=== PATIENT | female | born 1995 | race Caucasian/White ===

== ENCOUNTER 2020-07-02 05:04 | Emergency (ER) | payer MEDICAID, OTHER ==
[~2020-07-02] VITALS: Ht 152.4 cm; Wt 55.0 kg
[~2020-07-02 05:04] MED LIST: ALBU2SYR3 PO
[2020-07-02 05:17] VITALS: BP 114/61
[2020-07-02] MEDS ORDERED: SODIUM CHLORIDE 0.9% 1,000 ML IV ONE (05:58)
[2020-07-02] MEDS ORDERED: ONDANSETRON HCL 4MG/2ML INJ IV STA (05:58)
[2020-07-02] MEDS ORDERED: MORPHINE SULFATE 4 MG/ML CPJ (NOT FOR IM USE) IV STA (05:58)
[2020-07-02 06:40] LABS: HEMATOCRIT. 39.4 % (36.0-48.0); HEMOGLOBIN. 13.5 g/dL (12.0-16.0); MEAN CORPUSCULAR HEMOGLOBIN 32.1 pg (28.0-32.0); MEAN CORPUSCULAR VOLUME 93.8 fL (81.0-99.0); MEAN PLATELET VOLUME 10.8 fl (7.4-10.4); PLATELET 189 x1000/uL (130-400); RED BLOOD CELL COUNT 4.19 mill/uL (4.2-5.4); RED CELL DISTRIBUTION WIDTH 13.3 % (11.6-14.6)
[2020-07-02 06:44] LABS: CHLORIDE 107 mEq/L (98-107)
[2020-07-02 06:53] LABS: HCG SCREEN NEGATIVE
[2020-07-02 07:09] LABS: PLATELET ESTIMATE NORMAL
[2020-07-02] MEDS ORDERED: IOHEXOL-300 100 ML BOTTLE ONE (08:13)
[2020-07-02 08:56] LABS: CLARITY URINE CLOUDY (CLEAR); COLOR URINE YELLOW (YELLOW); KETONES URINE 4+ (NEGATIVE); LEUKOCYTE ESTERASE URINE NEGATIVE (NEGATIVE); NITRITE URINE POSITIVE (NEGATIVE); OCCULT BLOOD URINE TRACE (NEGATIVE); PH URINE 6.5 (4.5-8.0); PROTEIN URINE 1+ (NEGATIVE); SPECIFIC GRAVITY URINE 1.035 (1.005-1.030)
[2020-07-02] MEDS ORDERED: CEFTRIAXONE 1 G PREMIX 50 ML IV ONE (09:15)
[2020-07-02] MEDS ORDERED: METRONIDAZOLE 500 MG PREMIX 100 ML IV ONE (09:15)
== END 2020-07-02 10:41 | disposition left against medical advice (07) ==
LOC: ER 05:04 → EDBEDREQ 09:18 → ER 10:41 → CANBEDREQ 16:33
DX: K52.9 Noninfective gastroenteritis and colitis, unspecified (principal); R10.9 Unspecified abdominal pain; F17.200 Nicotine dependence, unspecified, uncomplicated
CPT/HCPCS: 36415; 74177; 80053; 81003; 83690; 84703; 85025; 96361; 96374; 96375; 99285; J2270; J2405; J7030; Q9967

== ENCOUNTER 2020-09-03 10:22 | Emergency (ER) | payer MEDICAID ==
[~2020-09-03] VITALS: Ht 160 cm; Wt 55.0 kg
[2020-09-03] MEDS ORDERED: FAMOTIDINE 20MG/2ML VIAL IV STA (10:54)
[2020-09-03] MEDS ORDERED: ONDANSETRON HCL 4MG/2ML INJ IV STA (10:54)
[2020-09-03] MEDS ORDERED: KETOROLAC 30MG/ML VIAL IV STA (10:54)
[2020-09-03] MEDS ORDERED: SODIUM CHLORIDE 0.9% 1,000 ML IV ONE (11:00)
[2020-09-03 11:48] LABS: HEMATOCRIT. 37.6 % (36.0-48.0); HEMOGLOBIN. 12.8 g/dL (12.0-16.0); MEAN CORPUSCULAR VOLUME 94.2 fL (81.0-99.0); MEAN PLATELET VOLUME 10.8 fl (7.4-10.4); PLATELET 158 x1000/uL (130-400); RED CELL DISTRIBUTION WIDTH 13.1 % (11.6-14.6)
[2020-09-03 11:50] LABS: CLARITY URINE CLOUDY (CLEAR); COLOR URINE YELLOW (YELLOW); KETONES URINE 4+ (NEGATIVE); LEUKOCYTE ESTERASE URINE TRACE (NEGATIVE); NITRITE URINE POSITIVE (NEGATIVE); OCCULT BLOOD URINE 2+ (NEGATIVE); PROTEIN URINE 1+ (NEGATIVE); SPECIFIC GRAVITY URINE 1.035 (1.005-1.030)
[2020-09-03 11:54] LABS: CHLORIDE 109 mEq/L (98-107)
[2020-09-03 11:55] LABS: HCG SCREEN NEGATIVE
[2020-09-03 11:56] LABS: INR 1.1; PROTHROMBIN TIME 11.2 sec (9.6-11.0)
[2020-09-03] MEDS ORDERED: CEFTRIAXONE 1 G PREMIX 50 ML IV ONE (12:00)
[2020-09-03] MEDS: LORAZEPAM 2MG/ML CPJ IV ONE ×2 (12:02→12:15)
[2020-09-03 12:20] LABS: *AMPHETAMINES SCREEN URINE NEGATIVE (NEGATIVE); *BARBITURATES SCREEN URINE NEGATIVE (NEGATIVE)
[2020-09-03 12:21] LABS: *BENZODIAZEPINES SCREEN URINE NEGATIVE (NEGATIVE); *COCAINE SCREEN URINE NEGATIVE (NEGATIVE); METHADONE URINE SCREEN NEGATIVE (NEGATIVE); OPIATES URINE SCREEN NEGATIVE (NEGATIVE); PHENCYCLIDINE URINE SCREEN NEGATIVE (NEGATIVE)
[2020-09-03 12:25] LABS: CANNABINOID URINE SCREEN PRESUMTIVE POSITIVE (NEGATIVE)
[2020-09-03 12:40] LABS: PLATELET ESTIMATE NORMAL
[2020-09-03] MEDS ORDERED: ONDANSETRON HCL 4MG/2ML INJ IV NR (13:00)
[2020-09-03 15:11] VITALS: BP 104/53
== END 2020-09-03 15:14 | disposition home or self-care (01) ==
LOC: ER 10:22
DX: K29.70 Gastritis, unspecified, without bleeding (principal); K58.9 Irritable bowel syndrome, unspecified; J45.909 Unspecified asthma, uncomplicated; F12.10 Cannabis abuse, uncomplicated
CPT/HCPCS: 36415; 80053; 80305; 81003; 81025; 83690; 84703; 85025; 85610; 93005; 96365; 96375; 99284; J0696; J2060; J2405; J3490; J7030

== ENCOUNTER 2020-10-15 06:15 | Emergency (ER) | payer MEDICAID ==
[~2020-10-15] VITALS: Ht 152.4 cm; Wt 48.0 kg
[2020-10-15 06:17] VITALS: BP 122/76
== END 2020-10-15 12:24 | disposition left against medical advice (07) ==
LOC: ER 06:15
DX: Z53.21 Procedure and treatment not carried out due to patient leaving prior to being seen by health care provider (principal)
CPT/HCPCS: 93005

== ENCOUNTER 2022-12-15 11:05 | Emergency (ER) | payer MEDICAID ==
[~2022-12-15] VITALS: Ht 152.4 cm; Wt 50.0 kg
[2022-12-15 11:27] VITALS: BP 111/78
[2022-12-15] MEDS ORDERED: ONDANSETRON 4MG ODT PO ONE (11:30)
[2022-12-15] MEDS: ACETAMINOPHEN 325MG TABLET PO PRN ×2 (11:40→14:37)
[2022-12-15 12:18] LABS: CLARITY URINE CLOUDY (CLEAR); COLOR URINE DARK YELLOW (YELLOW); KETONES URINE 4+ (NEGATIVE); LEUKOCYTE ESTERASE URINE TRACE (NEGATIVE); NITRITE URINE NEGATIVE (NEGATIVE); OCCULT BLOOD URINE NEGATIVE (NEGATIVE); PH URINE 7.5 (4.5-8.0); PROTEIN URINE 2+ (NEGATIVE)
[2022-12-15 12:43] LABS: HEMATOCRIT. 39.2 % (36.0-48.0); HEMOGLOBIN. 13.4 g/dL (12.0-16.0); MEAN CORPUSCULAR HEMOGLOBIN 32.3 pg (28.0-32.0); MEAN PLATELET VOLUME 9.7 fl (7.4-10.4); PLATELET 205 x1000/uL (130-400); RED BLOOD CELL COUNT 4.17 mill/uL (4.2-5.4)
[2022-12-15 12:46] LABS: CHLORIDE 108 mEq/L (98-107)
[2022-12-15 13:06] LABS: PLATELET ESTIMATE NORMAL
[2022-12-15 13:09] LABS: B-HCG QUANTITATIVE 51776 mIU/mL (<3)
[2022-12-15] MEDS ORDERED: TOPUD MT (13:57)
[2022-12-15] MEDS ORDERED: ONDA4TAB11 PO (13:57)
[2022-12-15] MEDS ORDERED: CEPH500C2 MT (13:57)
[2022-12-15] MEDS ORDERED: ONDANSETRON HCL 4MG/2ML INJ IM ONE (14:30)
== END 2022-12-15 14:58 | disposition home or self-care (01) ==
LOC: ER 12:35
DX: O23.41 Unspecified infection of urinary tract in pregnancy, first trimester (principal); N39.0 Urinary tract infection, site not specified; O26.891 Other specified pregnancy related conditions, first trimester; J45.909 Unspecified asthma, uncomplicated; Z3A.01 Less than 8 weeks gestation of pregnancy
CPT/HCPCS: 36415; 76801; 76817; 80053; 81003; 84702; 85025; 86850; 86900; 86901; 96372; 99285; J2405; Q0162; Z7610

== ENCOUNTER 2023-06-05 01:42 | Emergency (ER) | payer MEDICAID ==
[~2023-06-05] VITALS: Ht 152.4 cm; Wt 51.7 kg
[~2023-06-05 01:42] MED LIST changes: +CEPH500C2 MT; +ONDA4TAB11 PO; +TOPUD MT
[2023-06-05 01:50] VITALS: O2SAT 99
[2023-06-05 02:25] LABS: BASOPHILS % 0.4 % (0.0-2.0); EOSINOPHILS % 1.4 % (0.0-5.0); HEMATOCRIT. 39.9 % (36.0-48.0); HEMOGLOBIN. 13.8 g/dL (12.0-16.0); LYMPHOCYTES % 18.9 % (20.0-50.0); MEAN CORPUSCULAR HEMOGLOBIN 32.3 pg (28.0-32.0); MEAN CORPUSCULAR HGB CONC 34.5 g/dL (31.0-37.0); MEAN CORPUSCULAR VOLUME 93.6 fL (81.0-99.0); MEAN PLATELET VOLUME 9.8 fl (7.4-10.4); MONOCYTES % 6.9 % (2.0-8.0); NEUTROPHILS % 72.4 % (40.0-76.0); PLATELET 188 x1000/uL (130-400); RED BLOOD CELL COUNT 4.27 mill/uL (4.2-5.4); RED CELL DISTRIBUTION WIDTH 13.3 % (11.6-14.6)
[2023-06-05 05:06] LABS: CLARITY URINE CLOUDY (CLEAR); COLOR URINE YELLOW (YELLOW); GLUCOSE URINE NEGATIVE (NEGATIVE); KETONES URINE NEGATIVE (NEGATIVE); LEUKOCYTE ESTERASE URINE 2+ (NEGATIVE); NITRITE URINE POSITIVE (NEGATIVE); OCCULT BLOOD URINE 3+ (NEGATIVE); PROTEIN URINE 2+ (NEGATIVE); SPECIFIC GRAVITY URINE 1.017 (1.005-1.030)
[2023-06-05] MEDS ORDERED: AMOX1TAB16 MT (06:09)
[2023-06-05] MEDS ORDERED: IBUP-2029 PO (06:09)
[2023-06-05] MEDS ORDERED: ONDANSETRON 4MG ODT PO ONE (06:15)
[2023-06-05] MEDS ORDERED: IBUPROFEN 600MG TABLET PO ONE (06:15)
[2023-06-05 06:32] VITALS: BP 101/68
[2023-06-05 06:36] VITALS: PULSE 88; RESP 18; TEMP 98.3
[2023-06-05 08:08] LABS: RBC URINE 0-2 /hpf (0-2)
[2023-06-05 08:09] LABS: BACTERIA URINE 4+; SQUAMOUS EPITHELIAL CELL URINE 1+ /lpf (RARE/1+)
== END 2023-06-05 06:30 | disposition home or self-care (01) ==
LOC: ER 01:42
DX: N12 Tubulo-interstitial nephritis, not specified as acute or chronic (principal); I10 Essential (primary) hypertension; F17.210 Nicotine dependence, cigarettes, uncomplicated; Z79.899 Other long term (current) drug therapy
CPT/HCPCS: 99283; 81003; 81025; 85025; 36415; Q0162

== ENCOUNTER 2023-08-22 11:36 | Emergency (ER) | payer MEDICAID, OTHER ==
[~2023-08-22] VITALS: Ht 157.5 cm; Wt 54.0 kg
[~2023-08-22 11:36] MED LIST changes: +AMOX1TAB16 MT; +IBUP-2029 PO
[2023-08-22 11:46] VITALS: O2SAT 95
[2023-08-22 12:27] LABS: BASOPHILS % 0.2 % (0.0-2.0); HEMATOCRIT. 38.9 % (36.0-48.0); HEMOGLOBIN. 13.3 g/dL (12.0-16.0); LYMPHOCYTES % 7.1 % (20.0-50.0); MEAN CORPUSCULAR HEMOGLOBIN 31.6 pg (28.0-32.0); MEAN CORPUSCULAR HGB CONC 34.1 g/dL (31.0-37.0); MEAN CORPUSCULAR VOLUME 92.6 fL (81.0-99.0); MEAN PLATELET VOLUME 10.4 fl (7.4-10.4); MONOCYTES % 4.5 % (2.0-8.0); NEUTROPHILS % 88.2 % (40.0-76.0); PLATELET 175 x1000/uL (130-400); RED BLOOD CELL COUNT 4.19 mill/uL (4.2-5.4); RED CELL DISTRIBUTION WIDTH 12.6 % (11.6-14.6); WHITE BLOOD COUNT 12.7 x1000/uL (4.5-11.0)
[2023-08-22 12:40] LABS: CHLORIDE 105 mEq/L (98-107); INDEX HEMOLYSI 1 (1-3); INDEX ICTERIC 1 (1-4); INDEX LIPEMIC 1 (1-3); POTASSIUM 3.4 mEq/L (3.5-5.1); SODIUM 137 mEq/L (136-145)
[2023-08-22 12:46] LABS: ALANINE AMINOTRANSFERASE 28 IU/L (13-61); ALBUMIN 4.9 g/dL (3.4-5.0); ASPARTATE AMINOTRANSFERASE 24 IU/L (15-37); BILIRUBIN TOTAL 1.3 mg/dL (0.1-1.0); CALCIUM 9.9 mg/dL (8.5-10.1); CARBON DIOXIDE 23 mEq/L (21-32); CREATININE 0.6 mg/dL (0.6-1.3); GLUCOSE 100 mg/dL (70-105); PROTEIN TOTAL 8.2 g/dL (6.0-8.3); UREA NITROGEN BLOOD 17 mg/dL (7-21)
[2023-08-22 14:45] VITALS: BP 113/79; PULSE 87; RESP 18; TEMP 98.6
[2023-08-22] MEDS ORDERED: KETOROLAC 60MG/2ML VIAL IM STA (14:45)
[2023-08-22] MEDS ORDERED: ACETAMINOPHEN 325MG TABLET PO STA (14:45)
[2023-08-22] MEDS ORDERED: ONDANSETRON 4MG ODT PO STA (14:45)
[2023-08-22 15:27] LABS: HCG SCREEN NEGATIVE
[2023-08-22] MEDS ORDERED: ONDANSETRON 4MG ODT PO ONE (18:45)
[2023-08-22 18:48] LABS: CLARITY URINE CLOUDY (CLEAR); COLOR URINE DARK YELLOW (YELLOW); GLUCOSE URINE NEGATIVE (NEGATIVE); KETONES URINE 4+ (NEGATIVE); LEUKOCYTE ESTERASE URINE 1+ (NEGATIVE); NITRITE URINE NEGATIVE (NEGATIVE); OCCULT BLOOD URINE TRACE (NEGATIVE); PH URINE 6.5 (4.5-8.0); PROTEIN URINE 2+ (NEGATIVE); SPECIFIC GRAVITY URINE 1.035 (1.005-1.030)
[2023-08-22 19:39] LABS: BACTERIA URINE 4+; SQUAMOUS EPITHELIAL CELL URINE 2+ /lpf (RARE/1+)
[2023-08-22 19:40] LABS: RBC URINE 0-2 /hpf (0-2)
[2023-08-22] MEDS ORDERED: FAMO40TA70 MT (20:55)
[2023-08-22] MEDS ORDERED: ONDA4TAB11 PO (20:56)
[2023-08-22] MEDS ORDERED: NITR-87 MT (20:57)
[2023-08-22] MEDS ORDERED: MAGNESIUM/ALUMINUM HYDROXIDE/SIMETHICONE 30ML UDC PO ONE (21:00)
[2023-08-22] MEDS ORDERED: FAMOTIDINE 20MG TABLET PO ONE (21:00)
== END 2023-08-22 21:06 | disposition home or self-care (01) ==
LOC: ER 11:44
DX: N39.0 Urinary tract infection, site not specified (principal)
CPT/HCPCS: 36415; 74176; 76830; 76856; 80053; 81003; 84703; 85025; 93976; 96372; 99285; J1885; Q0162